=== PATIENT | male | born 1975 | race Caucasian/White ===

== ENCOUNTER 2023-04-24 07:12 | Day surgery (SDC) | payer BC, SELFPAY ==
[2023-04-23 09:18] VITALS: BMI 29.5
--- NOTE | 2023-04-24 07:24 | P.PNANES_ITS ---
[facility] Disclaimer: The information contained in this section may have been updated after the patient was seen, as this information can be updated by other users. Medical History Migraine Family History Other Family history of cancer Social History Smoking Status: Former smoker second hand exposure: No alcohol intake: current substance use type: denies use current occupational status: employed Travel in the last 8 weeks: None household members: spouse and children housing: house current occupation: [employer] current occupational exposures/hazards: No caffeine: Yes [facility] Anesthesia Checklist Patient Identification Patient Identification: Arm Band and Verbal (Name & ) Structural Data Admitted From: Home Planned Operative Procedure/s: Colonoscopy Consent for Planned Operative Procedure(s) Verified: Yes NPO Status Verified Time NPO: 00:00 Additional verifications Anesthesia Reactions: No Airway Assessment Mallampati Score:: Class II C-Spine Mobility Assessed: Yes TMJ Mobility Assessed: Yes Dentition: Good Dentition Neurological Assessment Level of Consciousness: Awake Hx Seizures: No Numbness or tingling in extremities: No Anesthesia Plan Anesthesia Risk discussed: Yes Anesthesia Plan: Verified ASA Class: II Anesthesia Type: MAC
[2023-04-24 07:27] VITALS: BP 143/78; PULSE 87; RESP 18; TEMP 36.3; O2SAT 96
--- NOTE | 2023-04-24 07:38 | [facility].SCOPE ---
Procedure: Date: 04/24/23 Patient Date of :: 1975 Procedure Performed:: Colonoscopy with polypectomy Indications:: Screening Performing Provider:: Mc Rubio MD Referring Provider:: . Sedation:: Monitored anesthesia care Procedure:: After informed consent was obtained the patient was taken to the endoscopy suite. Sedation ensued after the patient was transferred to the left lateral decubitus position. Pulse, blood pressure, and oxygen saturation were monitored throughout the procedure. Digital rectal exam revealed no significant abnormality. The colonoscope was placed in position. The entire colon was evaluated. The colonoscope was carefully removed and the patient was transferred to recovery in stable condition. Please see findings and specimens below for detail. Findings:: Bowel preparation moderate Moderate spasticity/lack of relaxation Polyps (see specimens) Specimens:: Polyp at 50 cm (cold snare) Adjacent polyps at 40 cm (cold biopsy forceps) Recommendations:: Timing of repeat colonoscopy is pending pathology but will likely be between 2-3 years with extended bowel preparation secondary to moderate preparation, spasticity/lack of relaxation, and polyps. Complications:: No immediate Estimated blood obtained (mL): 1 Colonoscopy Component Colonoscopy Component Was a colonoscopy performed during today's procedure?: Yes Recommended follow up colonoscopy of at least 10 years?: No If no, follow up colonoscopy recommended in ___ years?: (See above) Reason for not recommending >/= 10 yr follow-up interval?: (See above)
[2023-04-24 08:02] VITALS: O2SAT 94
[2023-04-24 08:30] VITALS: BP 92/60; PULSE 94; RESP 14; TEMP 36.3; O2SAT 90
[2023-04-24 08:46] VITALS: BP 87/58; PULSE 78; RESP 17; O2SAT 94
[2023-04-24 08:50] VITALS: BP 101/68; PULSE 79; RESP 17; O2SAT 94
[2023-04-24 09:00] VITALS: BP 108/71; PULSE 70; RESP 18; O2SAT 96
== END 2023-04-24 09:15 | disposition home or self-care (01) ==
PROVIDERS: PCP Nurse Practitioner Family; Visit Provider Surgery
PROC: 0DJD8ZZ Inspection of Lower Intestinal Tract, Via Natural or Artificial Opening Endoscopic (ICD-10-PCS; CPT 45385; principal; 2023-04-24 07:30)
DX: Z12.11 Encounter for screening for malignant neoplasm of colon (principal); D12.5 Benign neoplasm of sigmoid colon
CPT/HCPCS: 45385; 45380; J2704